=== PATIENT | male | born 1960 | race Caucasian/White ===

== ENCOUNTER 2017-04-28 09:32 | Day surgery (SDC) | payer OTHER ==
[2017-04-28] MEDS ORDERED: Lidocaine 1% PF 5 ML VIAL ONE (11:22)
[2017-04-28] MEDS ORDERED: Propofol 200 MG/20 ML VIAL ONE (11:22)
--- NOTE | 2017-04-28 12:00 | OP ---
DATE OF SERVICE: 04/28/2017 GI ENDOSCOPY NOTE SURGEON: Willem Zimmerman M.D. CALENDERING MACHINE OPERATOR SURGEON: None. PROCEDURE PERFORMED: Colonoscopy, screening. INDICATION: A 57-year-old gentleman with a family history of colon cancer in a first-degree relativ e (sister in her 50s), here for first screening colonoscopy. MEDICATIONS: See anesthesia record. FINDINGS: After discussion of the risks, benefits and alternatives of the procedure, informed conse nt was obtained and witnessed. Pre-endoscopic cardiopulmonary examination was satisfactory. Timeou t was performed before sedation was achieved. Sedation was achieved with anesthesia assistance in [facility] endoscopy unit. A digital rectal exam was performed which was unremarkable. A Pentax adult colo noscope was inserted into the anus and passed forward to the cecum in the usual fashion. The cecal base was identified by the appendiceal orifice as well as the ileocecal valve. The terminal ileum w as intubated and the ileal mucosa appeared normal. The colonoscope was then slowly withdrawn in a g radual and circumferential manner with careful examination of the entire colonic mucosa. The qualit y of the prep was good. In the sigmoid colon, there were a few small and medium sized diverticula. Otherwise, the colonoscopy is completely normal. There are no mucosal abnormalities. No polyps vi sualized. Retroflexion in the rectum was unremarkable. The colonoscope was completely withdrawn an d the patient allowed to recover. The patient tolerated the procedure well. There were no immediat e post-procedure complications. IMPRESSION: 1. Sigmoid diverticulosis. 2. Otherwise, normal colonoscopy to the terminal ileum. RECOMMENDATIONS: Repeat colonoscopy for screening in 5 years, due to his family history of colon ca ncer in a first-degree relative.
== END 2017-04-28 12:20 | disposition home or self-care (01) ==
LOC: SDC 09:32
PROVIDERS: ATTEND Internal Medicine
PROC: 0DJD8ZZ Inspection of Lower Intestinal Tract, Via Natural or Artificial Opening Endoscopic (ICD-10-PCS; principal; 2017-04-28)
DX: Z12.11 Encounter for screening for malignant neoplasm of colon (principal); K57.30 Diverticulosis of large intestine without perforation or abscess without bleeding; K21.9 Gastro-esophageal reflux disease without esophagitis; G47.30 Sleep apnea, unspecified; E66.01 Morbid (severe) obesity due to excess calories; Z68.43 Body mass index [BMI] 50.0-59.9, adult; Z88.5 Allergy status to narcotic agent; Z96.652 Presence of left artificial knee joint; Z80.0 Family history of malignant neoplasm of digestive organs
CPT/HCPCS: J2001; J2704

== ENCOUNTER 2020-04-19 10:51 | Inpatient (IN) | payer BC, OTHER ==
[~2020-04-19 10:51] MED LIST: Iopamidol-370 76% 500 ML 1 ML ONE
--- NOTE | 2020-04-19 11:18 | CT ---
CT HEAD WITHOUT IV CONTRAST COMPARISON: None. HISTORY: Level 2 stroke. Numbness to right side of body. TECHNIQUE: Axial CT imaging at 5 mm intervals from vertex through skull base without contrast FINDINGS: There is no evidence of an acute infarction, hemorrhage, mass effect, or midline shift. The ventricul ar system is normal in size, shape, and position. Skull base has a normal CT appearance. Visualized paranasal sinuses are clear. Osseous structures appear intact. IMPRESSION: 1. No acute intracranial abnormality demonstrated. 2. Above findings discussed Dr. Sung in the emergency department on 04/19/2020 at 1115 hours.
[2020-04-19 11:21] LABS: #Basophils 0.1 thou/uL (0.0-0.2); #Eosinphils 0.1 thou/uL (0.0-0.7); #Lymphocytes 2.6 thou/uL (1.20-3.40); #Monocytes 0.7 thou/uL (0.11-0.59); #Neutrophils 5.6 thou/uL (1.40-6.50); %Basophils 0.7 % (0.0-1.0); %Eosinophils 1.1 % (0.0-10.0); %Lymphocytes 28.5 % (21.0-51.0); %Monocytes 7.8 % (0.0-10.0); %Neutrophils 61.9 % (42.0-75.0); Hemoglobin 16.5 g/dL (14.0-18.0); Mean Corpuscular HGB CONC 33.9 g/dL (32.0-36.0); Mean Corpuscular Hemoglobin 31.3 pg (27.0-31.0); Mean Corpuscular Volume 92.4 fL (78.0-98.0); Mean Platelet Volume 8.8 fL (7.4-10.4); Platelet Count 191 thou/uL (130-400); RBC Distribution Width 12.2 % (11.5-14.5); Red Blood Cell (RBC) Count 5.28 mill/uL (4.70-6.10); White Blood Cell (WBC) Count 9.1 thou/uL (4.8-10.8)
[2020-04-19 11:32] LABS: INR-International Normal Ratio 0.9; PTT 34.7 sec (22.9-36.1); Prothrombin Time 12.8 sec (12.0-14.7)
[2020-04-19 11:41] LABS: Anion Gap 13 mmol/L (10-20); BUN (Urea Nitrogen) 18 mg/dL (8.4-25.7); Carbon Dioxide 25 mmol/L (22-29); Chloride 105 mmol/L (98-107); Sodium 139 mmol/L (136-145)
[2020-04-19 11:42] LABS: ALT (SGPT) 20 U/L (8-55); AST (SGOT) 16 U/L (5-34); Albumin 4.1 g/dL (3.5-5.0); Alkaline Phosphatase 92 U/L (40-110); Bilirubin, Total 0.5 mg/dL (0.2-1.2); CK (CPK) 66 U/L (30-200); Calc. Creatinine Clearance 0 mL/min (70-130); Estimated GFR-MDRD 70; Globulin 3.3 g/dL (2.4-3.5); Glucose 101 mg/dL (70-105); Protein, Total 7.4 g/dL (6.0-8.3)
--- NOTE | 2020-04-19 11:44 | CT ---
EXAM: CT angiogram head and neck with IV contrast and 3-D reconstructions PROVIDED CLINICAL HISTORY: Numbness to right side of body. Level 2 stroke. COMPARISON: Noncontrast CT head on 04/19/2020 FINDINGS: There is a normal arrangement of the great vessels at the aortic arch. There is limited evaluation of the vessels at the level of the chest and in the lower neck due to artifact primarily related to body habitus. However, the great vessels as well as bilateral subclavian arteries appear grossly laboy nt. The bilateral common carotid arteries are limited in their assessment but also appear patent. The bilateral internal and external carotid arteries are widely patent. The cervical vertebral arteries are limited again due to artifact but do appear patent. Distal verteb ral arteries and basilar artery are patent. Bilateral posterior cerebral arteries are patent. There are posterior communicating arteries visualiz ed bilaterally which are patent. The bilateral anterior and middle cerebral arteries are patent without branch occlusion or focal sten osis seen. No aneurysm is seen within the limitations of this exam. Minimal volume loss is present at each lung apex. Mild degenerative changes are seen in the cervical spine. No other findings. IMPRESSION: 1. Patent bilateral internal carotid arteries. 2. No focal stenosis or branch occlusion is seen involving the [place] or vertebrobasilar sy stem. 3. Above findings discussed with Dr. Sung in the emergency department on 04/19/2020 at 1141 hours.
[2020-04-19] MEDS ORDERED: Aspirin 325 MG TAB ONE (11:53)
[2020-04-19] MEDS ORDERED: Acetaminophen 325 MG TAB PO PRN (12:29)
[2020-04-19] MEDS ORDERED: Senokot S 8.6-50 MG TAB PO PRN (12:29)
--- NOTE | 2020-04-19 13:04 | PDOC.HHP ---
Hospitalist HPI - History of Present Illness Left-sided numbness History of Present Illness: This is a 60-year-old male patient with a history of obesity and CALLY who presented this morning on account of right-sided numbness from his face to his feet on awakening this morning. His last well time was 3 AM today when he woke up in the night. Symptoms were noted when he woke up at about 6:30 and persisted until he reported here at 11:40 AM. He denied any associated weakness, parenthesis, speech sluing, facial droop or gait problems. At presentation his vitals were BP 175/117, pulse 86, respiration 18, temperature 97.7 and saturating 99 on room air. His labs showed troponin of 0.01, BMP and CBC were essentially within normal limits. CT scan of his head showed no acute intracranial abnormalityno he morrhage was noted. Medications given were aspirin 3 to 4 mg and normal saline 500 mils. Hospitalist team was consulted for admission. Hospitalist ROS - Review of Systems Constitutional: denies: fever, chills, sweats Respiratory: denies: cough, dry, shortness of breath, hemoptysis Cardiovascular: denies: chest pain, palpitations, orthopnea Gastrointestinal: denies: nausea, vomiting, abdominal pain Musculoskeletal: denies: neck pain, shoulder pain, arm pain Neurological: denies: weakness, numbness, incoordination Hospitalist History - Past Medical History Other Medical History: CALLY, morbid obesity - Past Surgical History Other Surgical History: Left total knee replacement - Family History Family History: reports: cancer - Social History Smoking Status: Never smoker Alcohol: reports: None Living Situation: With Family - Exam General Appearance: awake alert General - other findings: Morbidly obese, no acute distress Eye: PERRL, anicteric sclera ENT: normocephalic atraumatic Neck: symmetric, no JVD, no thyromegaly Heart: RRR, no murmur, no gallops, no rubs Respiratory: no wheezes, no rales, no ronchi Gastrointestinal: soft, non-tender, non-distended, normal bowel sounds Extremities: no cyanosis, no clubbing, no edema Neurological: cranial nerve grossly intact, no weakness Psychiatric: normal affect, A&O x 3 Hospitalist Results - Labs Result Diagrams: 04/19/20 11:06 04/19/20 11:06 Lab results: WBC 9.1 thou/uL (4.8-10.8) 04/19/20 11:06 Hgb 16.5 g/dL (14.0-18.0) 04/19/20 11:06 Hct 48.8 % (42.0-52.0) 04/19/20 11:06 MCV 92.4 fL (78.0-98.0) 04/19/20 11:06 Plt Count 191 thou/uL (130-400) 04/19/20 11:06 Neutrophils % 61.9 % (42.0-75.0) 04/19/20 11:06 Sodium 139 mmol/L (136-145) 04/19/20 11:06 Potassium 4.0 mmol/L (3.5-5.1) 04/19/20 11:06 Chloride 105 mmol/L (98-107) 04/19/20 11:06 Carbon Dioxide 25 mmol/L (22-29) 04/19/20 11:06 BUN 18 mg/dL (8.4-25.7) 04/19/20 11:06 Creatinine 1.08 mg/dL (0.7-1.3) 04/19/20 11:06 Glucose 101 mg/dL (70-105) 04/19/20 11:06 Calcium 9.0 mg/dL (7.8-10.44) 04/19/20 11:06 Total Bilirubin 0.5 mg/dL (0.2-1.2) 04/19/20 11:06 AST 16 U/L (5-34) 04/19/20 11:06 ALT 20 U/L (8-55) 04/19/20 11:06 Alkaline Phosphatase 92 U/L (40-110) 04/19/20 11:06 Creatine Kinase 66 U/L (30-200) 04/19/20 11:06 Troponin I 0.012 ng/mL (< 0.028) 04/19/20 11:06 Serum Total Protein 7.4 g/dL (6.0-8.3) 04/19/20 11:06 Albumin 4.1 g/dL (3.5-5.0) 04/19/20 11:06 Hospitalist H&P A/P - Plan Plan: 60-year-old male patient with a history of CALLY, arthritis of left knee status post total knee replacement presents today with right-sided numbness. Stroke/TIA Initial head CT negative for bleed We will admit to stroke unit Telemetry monitoring Received aspirinwe will continue We will check TSH, A1c and lipid profile Echocardiogram CT angiogram Neuro consult. CALLY CPAP at night -Obesity Management on out patinet basis will check A1c and lipid profile VT prophylaxisSCD
[2020-04-19 14:01] LABS: Hemoglobin A1c 5.4 % (4.0-6.0)
[2020-04-19 15:18] VITALS: BMI 56.0
--- NOTE | 2020-04-19 19:22 | CON ---
NEUROLOGY CONSULTATION DATE OF CONSULTATION: 04/19/2020 REASON FOR CONSULTATION: Left-sided paresthesias, rule out stroke. HISTORY OF PRESENT ILLNESS: Mr. José Sharma is a 60-year-old male, with medical history significant for obesity and obstructive sleep apnea, presented with right-sided numbness around 6:30 a.m. Per patient, the symptoms persisted until 11:40 a.m. and he still has numbness in the left upper extremity, but left lower extremity numbness has been improved. The patient denies any focal weakness, nausea, vomiting, headache, chest pain, abdominal pain, recent exposure to COVID, or problems with speech or swallowing. He presented to the emergency room with blood pressure of 175/[address] scan was done, which was negative for acute intracranial pathology. He was given aspirin and normal saline and admitted for further evaluation. REVIEW OF SYSTEMS: All systems were reviewed and were negative, except the pertinent positives and negatives mentioned in the HPI. PAST MEDICAL HISTORY: Obstructive sleep apnea, morbid obesity. PAST SURGICAL HISTORY: Left total knee replacement. FAMILY HISTORY: Cancer. SOCIAL HISTORY: Patient denies smoking, alcohol, or illegal drug use. ALLERGIES: Hydrocodone PHYSICAL EXAMINATION: 132/79 88 20 General Appearance: awake alert General - other findings: Morbidly obese, no acute distress Eye: PERRL, anicteric sclera ENT: normocephalic atraumatic Neck: symmetric, no JVD, no thyromegaly Heart: RRR, no murmur, no gallops, no rubs Respiratory: no wheezes, no rales, no ronchi Gastrointestinal: soft, non-tender, non-distended, normal bowel sounds Extremities: no cyanosis, no clubbing, no edema Neurological: Mental status, patient is alert and oriented to person, place, and time. Recent and remote memory intact. Speech is clear. Cranial nerves 2 through 12 intact, except 5, decreased sensation to light touch in V1, V2, V3 distribution on the left side of the face. Sensory, decreased sensation to touch of the left upper extremity. Cerebellar, finger-nose testing intact. Motor, muscle tone, and bulk are normal. Strength 5/5 bilaterally. Gait deferred due to patient's safety reason. DATA REVIEWED: I reviewed the labs, CBC and CMP, which were essentially unremarkable. Head CT did not reveal any acute intracranial pathology. Lab results: WBC 9.1 thou/uL (4.8-10.8) 04/19/20 11:06 Hgb 16.5 g/dL (14.0-18.0) 04/19/20 11:06 Hct 48.8 % (42.0-52.0) 04/19/20 11:06 MCV 92.4 fL (78.0-98.0) 04/19/20 11:06 Plt Count 191 thou/uL (130-400) 04/19/20 11:06 Neutrophils % 61.9 % (42.0-75.0) 04/19/20 11:06 Sodium 139 mmol/L (136-145) 04/19/20 11:06 Potassium 4.0 mmol/L (3.5-5.1) 04/19/20 11:06 Chloride 105 mmol/L (98-107) 04/19/20 11:06 Carbon Dioxide 25 mmol/L (22-29) 04/19/20 11:06 BUN 18 mg/dL (8.4-25.7) 04/19/20 11:06 Creatinine 1.08 mg/dL (0.7-1.3) 04/19/20 11:06 Glucose 101 mg/dL (70-105) 04/19/20 11:06 Calcium 9.0 mg/dL (7.8-10.44) 04/19/20 11:06 Total Bilirubin 0.5 mg/dL (0.2-1.2) 04/19/20 11:06 AST 16 U/L (5-34) 04/19/20 11:06 ALT 20 U/L (8-55) 04/19/20 11:06 Alkaline Phosphatase 92 U/L (40-110) 04/19/20 11:06 Creatine Kinase 66 U/L (30-200) 04/19/20 11:06 Troponin I 0.012 ng/mL (< 0.028) 04/19/20 11:06 Serum Total Protein 7.4 g/dL (6.0-8.3) 04/19/20 11:06 Albumin 4.1 g/dL (3.5-5.0) 04/19/20 11:06 ASSESSMENT AND PLAN: Mr. José Sharma is a 60-year-old male, with history significant for obstructive sleep apnea, arthritis of the left knee, status post total knee replacement, presented with acute onset right-sided numbness, which has been improved since admission. Most likely, transient ischemic attack versus stroke. Initial head CT negative. The patient is unable to unable to undergo MRI brain testing because of his weight issue, consider repeating CT scan of the brain tomorrow. Neuro checks every 4 hours. Continue aspirin, high-intensity statin for secondary stroke prevention. 2D echo to evaluate for left ventricular ejection fraction. Consider CTA of the head and neck to rule out hemodynamically significant stenosis. Continue telemetry, neuro checks every 4 hours. Continue aspirin, high-intensity statin for secondary stroke prevention. Permissive control of blood pressure at this time. Strict control of blood glucose. Check hemoglobin A1c, fasting lipid panel, and TSH. Continue home medication. Continue medical management per primary team, PT/OT/Speech. DVT prophylaxis. We will continue to follow. Thank you for the consult. Job ID: [id number]
[2020-04-19] MEDS: Famotidine 20 MG TAB PO SCH (21:39)
[2020-04-20 04:46] LABS: #Eosinphils 0.1 thou/uL (0.0-0.7); #Lymphocytes 1.5 thou/uL (1.20-3.40); #Monocytes 0.5 thou/uL (0.11-0.59); #Neutrophils 2.8 thou/uL (1.40-6.50); %Basophils 0.6 % (0.0-1.0); %Eosinophils 1.7 % (0.0-10.0); %Lymphocytes 31.4 % (21.0-51.0); %Monocytes 9.3 % (0.0-10.0); %Neutrophils 56.9 % (42.0-75.0); Hemoglobin 14.4 g/dL (14.0-18.0); Mean Corpuscular HGB CONC 33.8 g/dL (32.0-36.0); Mean Corpuscular Volume 94.8 fL (78.0-98.0); Platelet Count 165 thou/uL (130-400); RBC Distribution Width 12.3 % (11.5-14.5); Red Blood Cell (RBC) Count 4.51 mill/uL (4.70-6.10); White Blood Cell (WBC) Count 4.9 thou/uL (4.8-10.8)
[2020-04-20 05:12] LABS: ALT (SGPT) 19 U/L (8-55); AST (SGOT) 13 U/L (5-34); Albumin 3.4 g/dL (3.5-5.0); Alkaline Phosphatase 72 U/L (40-110); Anion Gap 10 mmol/L (10-20); BUN (Urea Nitrogen) 14 mg/dL (8.4-25.7); Bilirubin, Total 0.6 mg/dL (0.2-1.2); Calc. Creatinine Clearance 192 mL/min (70-130); Calcium 8.6 mg/dL (7.8-10.44); Carbon Dioxide 27 mmol/L (22-29); Chloride 107 mmol/L (98-107); Cholesterol 170 mg/dl (< 200 Desired); Estimated GFR-MDRD 75; Globulin 2.6 g/dL (2.4-3.5); Glucose 113 mg/dL (70-105); HDL Cholesterol 34 mg/dL (>60 Neg Risk); LDL Cholesterol, Calculated 121 mg/dL; Potassium 3.8 mmol/L (3.5-5.1); Sodium 140 mmol/L (136-145); Triglycerides 77 mg/dL (Less than 150)
--- NOTE | 2020-04-20 09:26 | PDOC.HOSPP ---
- Subjective Encounter Date: 04/20/20 Encounter Time: 09:25 Subjective: No overnight events. Patient continues to report persistent numbness to R face and R arm. Reports resolved numbness to RLE. Denies changes in vision, dizziness, weakness. Denies chest pain, SOB, abdominal pain. Chart and medications reviewed. - Objective Vital Signs & Weight: Vital Signs (12 hours) Temp Pulse Resp BP Pulse Ox 04/20/20 08:00 134/86 04/20/20 07:56 97.7 F 81 16 98 04/20/20 03:10 97.9 F 66 20 110/62 94 L 04/19/20 23:11 97.8 F 66 20 106/77 99 Weight Weight 379 lb 11.2 oz I&O: 04/19/20 04/20/20 04/21/20 06:59 06:59 06:59 Intake Total 657 Balance 657 Result Diagrams: 04/20/20 04:25 04/20/20 04:25 Additional Labs: Accuchecks 04/19/20 11:03 POC Glucose 100 Hospitalist ROS - Review of Systems Constitutional: denies: fever, chills, sweats, weakness, malaise, other Eyes: denies: vision change ENT: denies: ear pain, mouth pain Respiratory: denies: cough, dry, shortness of breath, hemoptysis, SOB with exc ertion, pleuritic pain, sputum, wheezing, other Cardiovascular: denies: chest pain, palpitations, orthopnea, paroxysmal noc. dyspnea, edema, light headedness, other Gastrointestinal: denies: nausea, vomiting, abdominal pain, diarrhea, constipation, melena, hematochezia, other Genitourinary: denies: dysuria Musculoskeletal: denies: neck pain, shoulder pain Skin: denies: rash Neurological: reports: numbness. denies: weakness, change in speech, confusion - Medication Medications: Active Medications Generic Name Dose Route Start Last Admin Trade Name Freq PRN Reason Stop Dose Admin Famotidine 20 mg 04/19/20 21:00 04/19/20 21:39 Famotidine 20 Mg Tab PO 20 mg BID AIDEN Administration - Exam General Appearance: NAD, awake alert Eye: PERRL, anicteric sclera ENT: normocephalic atraumatic, no oropharyngeal lesions, moist mucosa Neck: supple, symmetric, no JVD, no thyromegaly, no lymphadenopathy, no carotid bruit Heart: RRR, no murmur, no gallops, no rubs, normal peripheral pulses Respiratory: CTAB, no wheezes, no rales, no ronchi, normal chest expansion, no tachypnea, normal percussion Gastrointestinal: soft, non-tender, non-distended, normal bowel sounds, no palpable masses, no hepatomegaly, no splenomegaly, no bruit Extremities: no cyanosis, no clubbing, no edema Skin: normal turgor, no lesions, no rashes Neurological: cranial nerve grossly intact, no weakness, no focal deficits, no new deficit Neurological - other findings: Decreased sensation to touch on RUE and R face, temporalis muscle intact Musculoskeletal: normal tone, normal strength, no muscle wasting Psychiatric: normal affect, normal behavior, A&O x 3 Hosp A/P - Plan 60M hx of CALLY, arthritis, obesity who presented with acute onset of right-sided weakness from his face, arm, and leg. Initial head CT no acute pathology. Patient now reports his RLE numbness has resolved, but still endorses RUE and R facial numbness. No weakness or pain. Neurology following who recommended repeat head CT since patient unable to undergo MRI 2/2 weight limit. Hg A1c 5.4, lipid panel wnl. TSH wnl. Continue ASA, statin Echo pending, cont telemetry monitoring Repeat head CT pending Neurology following Q4 neuro checks PT/OT eval DVT prophylaxis: lovenox FULL CODE Case discussed with Dr. Pineda
[2020-04-20 10:41] LABS: SARS-CoV-2 MS2 Positive; SARS-CoV-2 N Gene Negative; SARS-CoV-2 S Gene Negative; SARS-CoV-2 by NAA Not Detected (NotDetected); SARS-CoV-2 orf1ab Negative
--- NOTE | 2020-04-20 10:52 | CT ---
EXAM: CT angiogram head and neck with IV contrast and 3-D reconstructions PROVIDED CLINICAL HISTORY: Numbness to right side of body. Level 2 stroke. COMPARISON: Noncontrast CT head on 04/19/2020 FINDINGS: There is a normal arrangement of the great vessels at the aortic arch. There is limited evaluation of the vessels at the level of the chest and in the lower neck due to artifact primarily related to body habitus. However, the great vessels as well as bilateral subclavian arteries appear grossly laboy nt. The bilateral common carotid arteries are limited in their assessment but also appear patent. The bilateral internal and external carotid arteries are widely patent. The cervical vertebral arteries are limited again due to artifact but do appear patent. Distal verteb ral arteries and basilar artery are patent. Bilateral posterior cerebral arteries are patent. There are posterior communicating arteries visualiz ed bilaterally which are patent. The bilateral anterior and middle cerebral arteries are patent without branch occlusion or focal sten osis seen. No aneurysm is seen within the limitations of this exam. Minimal volume loss is present at each lung apex. Mild degenerative changes are seen in the cervical spine. No other findings. IMPRESSION: 1. Patent bilateral internal carotid arteries. 2. No focal stenosis or branch occlusion is seen involving the [place] or vertebrobasilar sy stem. 3. Above findings discussed with Dr. Sung in the emergency department on 04/19/2020 at 1141 hours. Transcribed Date/Time: 04/20/2020 10:52 AM
[2020-04-20] MEDS: Aspirin 325 mg Enteric Coated Tablet PO SCH (11:04)
[2020-04-20] MEDS: Famotidine 20 MG TAB PO SCH ×2 (11:05→21:32)
--- NOTE | 2020-04-20 12:04 | PDOC.NEUPN ---
- Subjective Encounter Date: 04/20/20 Subjective: Patient feels better today. Tingling and paresthesias in the right lower extremity resolved. He still has tingling and paresthesias on the left side of the face and left arm. Patient denies any weakness on any other new complaints. - Objective Vital Signs & Weight: Vital Signs (12 hours) Temp Pulse Pulse Pulse Resp BP BP 04/20/20 11:45 97.6 F 78 18 04/20/20 09:15 71 72 147/91 H 137/86 04/20/20 08:00 04/20/20 07:56 97.7 F 81 16 04/20/20 03:10 97.9 F 66 20 BP Pulse Ox 04/20/20 11:45 163/80 H 96 04/20/20 09:15 04/20/20 08:00 134/86 04/20/20 07:56 98 04/20/20 03:10 110/62 94 L Weight Weight 379 lb 11.2 oz I&O: 04/19/20 04/20/20 04/21/20 06:59 06:59 06:59 Intake Total 657 354 Balance 657 354 Result Diagrams: 04/20/20 04:25 04/20/20 04:25 Radiology Reviewed by me: Yes EKG Reviewed by me: Yes ROS - Review of Systems Constitutional: denies: fever, chills, sweats, weakness, malaise, other Eyes: denies: pain, vision change, conjunctivae inflammation, eyelid inflammation, redness, other ENT: denies: ear pain, ear discharge, nose pain, nose discharge, nose congestion, mouth pain, mouth swelling, throat pain, throat swelling, other Respiratory: denies: cough, dry, shortness of breath, hemoptysis, SOB with excertion, pleuritic pain, sputum, wheezing, other Musculoskeletal: reports: neck pain. denies: shoulder pain, arm pain, back pain, hand pain, leg pain, foot pain, other Neurological: reports: numbness. denies: weakness, incoordination, change in s peech, confusion, seizures, other All Systems: All other systems reviewed; all pertinent +/- noted in HPI/Subj - Medication Medications: Active Medications Generic Name Dose Route Start Last Admin Trade Name Freq PRN Reason Stop Dose Admin Aspirin 325 mg 04/20/20 09:00 04/20/20 11:04 Aspirin 325 Mg Enteric Coated Tablet PO 325 mg DAILY AIDEN Administration Famotidine 20 mg 04/19/20 21:00 04/20/20 11:05 Famotidine 20 Mg Tab PO Not Given BID AIDEN - Exam General Appearance: awake alert ENT: normocephalic atraumatic Neck: supple Respiratory: CTAB Cardiovascular: RRR Gastrointestinal: soft Extremities: no cyanosis Skin: normal turgor Neurological: CN's grossly intact, no weakness, no focal deficits, no new deficit Musculoskeletal: normal tone, normal strength, no muscle wasting PSYCH: normal behavior, A&O x 3, oriented to person, oriented to place, oriented to time Results - Labs Result Diagrams: 04/20/20 04:25 04/20/20 04:25 Lab results: WBC 4.9 thou/uL (4.8-10.8) 04/20/20 04:25 Hgb 14.4 g/dL (14.0-18.0) 04/20/20 04:25 Hct 42.7 % (42.0-52.0) 04/20/20 04:25 MCV 94.8 fL (78.0-98.0) 04/20/20 04:25 Plt Count 165 thou/uL (130-400) 04/20/20 04:25 Neutrophils % 56.9 % (42.0-75.0) 04/20/20 04:25 Sodium 140 mmol/L (136-145) 04/20/20 04:25 Potassium 3.8 mmol/L (3.5-5.1) 04/20/20 04:25 Chloride 107 mmol/L (98-107) 04/20/20 04:25 Carbon Dioxide 27 mmol/L (22-29) 04/20/20 04:25 BUN 14 mg/dL (8.4-25.7) 04/20/20 04:25 Creatinine 1.02 mg/dL (0.7-1.3) 04/20/20 04:25 Glucose 113 mg/dL (70-105) H 04/20/20 04:25 Calcium 8.6 mg/dL (7.8-10.44) 04/20/20 04:25 Total Bilirubin 0.6 mg/dL (0.2-1.2) 04/20/20 04:25 AST 13 U/L (5-34) 04/20/20 04:25 ALT 19 U/L (8-55) 04/20/20 04:25 Alkaline Phosphatase 72 U/L (40-110) 04/20/20 04:25 Creatine Kinase 66 U/L (30-200) 04/19/20 11:06 Troponin I 0.012 ng/mL (< 0.028) 04/19/20 11:06 Serum Total Protein 6.0 g/dL (6.0-8.3) 04/20/20 04:25 Albumin 3.4 g/dL (3.5-5.0) L 04/20/20 04:25 - Radiology Interpretation CT scan - head Status: image reviewed by me, report reviewed by me Additional Comment: Head CT reviewed which was negative for acute intracranial pathology. PN A/P - Plan Daily Plan: plan discussed w/ family, PT/OT, speech therapy, out of bed/ambulate 60-year-old male with history significant for hypertension presented with acute onset paresthesias of the right upper and lower extremity including the right side of the face. Right lower extremity paresthesias resolved but he still have mild persistent paresthesia in the right upper extremity and the right side of the face. The patient denies any focal weakness. Head CT reviewed which was negative for acute intracranial pathology. CTA of the head and neck was negative for hemodynamically significant stenosis. 2D echo completed. Left ventricular ejection fraction is 50 to 55%. No thrombus or PFO. MRI of the brain to rule out acute intracranial process cannot be completed at our hospital because of the weight limit. The patient will be transferred to [facility] for evaluation with open MRI brain today. Neurochecks every 4 hours. Continue aspirin and high intensity statin for secondary stroke prevention. Continue home medications. Permissive control of blood pressure at this time. Strict control of blood glucose. PT/OT/speech. Continue medical management per primary team. Plan discussed in detail with the patient, and primary provider and the nursing staff.
[2020-04-20] MEDS ORDERED: Lorazepam 1 MG TAB PO SCH (16:45)
[2020-04-20] MEDS ORDERED: Atorvastatin Calcium 40 MG TAB PO SCH (21:00)
[2020-04-20] MEDS ORDERED: Enoxaparin Sodium 40 MG/0.4 ML SYRINGE SC SCH (21:00)
[2020-04-21 05:17] LABS: #Basophils 0.1 thou/uL (0.0-0.2); #Eosinphils 0.1 thou/uL (0.0-0.7); #Lymphocytes 2.7 thou/uL (1.20-3.40); #Monocytes 0.6 thou/uL (0.11-0.59); #Neutrophils 3.8 thou/uL (1.40-6.50); %Basophils 1.1 % (0.0-1.0); %Eosinophils 1.7 % (0.0-10.0); %Lymphocytes 36.9 % (21.0-51.0); %Monocytes 8.6 % (0.0-10.0); %Neutrophils 51.8 % (42.0-75.0); Hemoglobin 14.4 g/dL (14.0-18.0); Mean Corpuscular HGB CONC 33.1 g/dL (32.0-36.0); Mean Corpuscular Volume 93.6 fL (78.0-98.0); Mean Platelet Volume 8.2 fL (7.4-10.4); Platelet Count 188 thou/uL (130-400); RBC Distribution Width 12.3 % (11.5-14.5); Red Blood Cell (RBC) Count 4.64 mill/uL (4.70-6.10); White Blood Cell (WBC) Count 7.3 thou/uL (4.8-10.8)
[2020-04-21 05:33] LABS: Anion Gap 11 mmol/L (10-20); BUN (Urea Nitrogen) 14 mg/dL (8.4-25.7); Calc. Creatinine Clearance 189 mL/min (70-130); Calcium 8.6 mg/dL (7.8-10.44); Carbon Dioxide 24 mmol/L (22-29); Chloride 108 mmol/L (98-107); Estimated GFR-MDRD 73; Glucose 115 mg/dL (70-105); Potassium 4.4 mmol/L (3.5-5.1); Sodium 139 mmol/L (136-145)
[2020-04-21 07:48] VITALS: BP 139/78; TEMP 97.4
[2020-04-21] MEDS: Famotidine 20 MG TAB PO SCH (09:58)
[2020-04-21] MEDS: Aspirin 325 mg Enteric Coated Tablet PO SCH (09:58)
--- NOTE | 2020-04-21 13:11 | PDOC.NEUPN ---
- Subjective Encounter Date: 04/21/20 Subjective: Patient is awake alert and feels much better this morning. MRI of the brain was done at [facility] which did reveal tiny acute lacunar infarction. No new complaints in the last 24 hours. Patient still complains of mild paresthesias in the left side of the face and left upper extremity. - Objective Vital Signs & Weight: Vital Signs (12 hours) Temp Pulse Resp BP Pulse Ox 04/21/20 07:47 97.4 F L 67 16 139/78 95 04/21/20 04:00 97.7 F 68 16 118/66 96 Weight Weight 379 lb 11.2 oz I&O: 04/20/20 04/21/20 04/22/20 06:59 06:59 06:59 Intake Total 657 1184 Balance 657 1184 Result Diagrams: 04/21/20 05:03 04/21/20 05:03 Radiology Reviewed by me: Yes EKG Reviewed by me: Yes ROS - Review of Systems Constitutional: denies: fever, chills, sweats, weakness, malaise, other ENT: denies: ear pain, ear discharge, nose pain, nose discharge, nose congestion, mouth pain, mouth swelling, throat pain, throat swelling, other Respiratory: denies: cough, dry, shortness of breath, hemoptysis, SOB with excertion, pleuritic pain, sputum, wheezing, other Gastrointestinal: denies: nausea, vomiting, abdominal pain, diarrhea, constipation, melena, hematochezia, other Musculoskeletal: denies: neck pain, shoulder pain, arm pain, back pain, hand pain, leg pain, foot pain, other Skin: denies: rash, lesions, daniela, bruising, other Neurological: reports: numbness All Systems: All other systems reviewed; all pertinent +/- noted in HPI/Subj - Exam General Appearance: awake alert Eye: PERRL ENT: normocephalic atraumatic Neck: supple Respiratory: CTAB Cardiovascular: RRR Gastrointestinal: soft Extremities: no cyanosis Skin: normal turgor Neurological: no new deficit Musculoskeletal: normal tone, normal strength, no muscle wasting PSYCH: normal affect, normal behavior, A&O x 3, oriented to person, oriented to place, oriented to time Results - Labs Result Diagrams: 04/21/20 05:03 04/21/20 05:03 Lab results: WBC 7.3 thou/uL (4.8-10.8) 04/21/20 05:03 Hgb 14.4 g/dL (14.0-18.0) 04/21/20 05:03 Hct 43.5 % (42.0-52.0) 04/21/20 05:03 MCV 93.6 fL (78.0-98.0) 04/21/20 05:03 Plt Count 188 thou/uL (130-400) 04/21/20 05:03 Neutrophils % 51.8 % (42.0-75.0) 04/21/20 05:03 Sodium 139 mmol/L (136-145) 04/21/20 05:03 Potassium 4.4 mmol/L (3.5-5.1) 04/21/20 05:03 Chloride 108 mmol/L (98-107) H 04/21/20 05:03 Carbon Dioxide 24 mmol/L (22-29) 04/21/20 05:03 BUN 14 mg/dL (8.4-25.7) 04/21/20 05:03 Creatinine 1.04 mg/dL (0.7-1.3) 04/21/20 05:03 Glucose 115 mg/dL (70-105) H 04/21/20 05:03 Calcium 8.6 mg/dL (7.8-10.44) 04/21/20 05:03 Total Bilirubin 0.6 mg/dL (0.2-1.2) 04/20/20 04:25 AST 13 U/L (5-34) 04/20/20 04:25 ALT 19 U/L (8-55) 04/20/20 04:25 Alkaline Phosphatase 72 U/L (40-110) 04/20/20 04:25 Creatine Kinase 66 U/L (30-200) 04/19/20 11:06 Troponin I 0.012 ng/mL (< 0.028) 04/19/20 11:06 Serum Total Protein 6.0 g/dL (6.0-8.3) 04/20/20 04:25 Albumin 3.4 g/dL (3.5-5.0) L 04/20/20 04:25 - EKG Interpretation EKG: Normal sinus rhythm - Radiology Interpretation MRI - head Status: report reviewed by me Additional Comment: MRI brain consistent with acute tiny lacunar infarction PN A/P - Plan Daily Plan: plan discussed w/ family, PT/OT, speech therapy, out of bed/ambulate 60-year-old male with history significant for hypertension presented with acute onset paresthesias of the right upper and lower extremity including the right side of the face. Right lower extremity paresthesias resolved but he still have mild persistent paresthesia in the right upper extremity and the right side of the face. The patient denies any focal weakness. MRI of the brain completed yesterday at [facility] showed subacute tiny lacunar infarction in the left thalamus. MRI of the brain reviewed which was consistent with acute infarction in the left thalamus. Head CT reviewed which was negative for acute intracranial pathology. CTA of the head and neck was negative for hemodynamically significant stenosis. 2D echo completed. Left ventricular ejection fraction is 50 to 55%. No thrombus or PFO. Neurochecks every 4 hours. Continue aspirin and high intensity statin for secondary stroke prevention. Continue home medications. Permissive control of blood pressure at this time. Strict control of blood glucose. PT/OT/speech. Continue medical management per primary team. Stable from discharge from neurology perspective Plan discussed in detail with the patient, and primary provider Dr. Arreguin and the nursing staff.
--- NOTE | 2020-04-21 18:51 | PDOC.DS.DS ---
Provider - Provider Date of Admission: 04/19/20 12:09 Date of Discharge: 04/21/20 Admitting Provider: Naresh Pineda MD Consultations:: Neurology Primary Care Physician: WILLEM VELA JR, MD Course - Hospital Course Hospital Course: Patient is a 60-year-old male with morbid obesity with a BMI of 56.1 and obstructive sleep apnea presented to the emergency room with left-sided paresthesias. He was admitted in the stroke unit with a diagnosis of suspected CVA. CT scan of the brain was negative for acute CVA. He was started on aspirin along with statins. Echocardiogram showed ejection fraction of 50 to 55% with mild aortic regurgitation without any intracardiac thrombus. CT angiogram of the head and neck was negative for hemodynamically significant stenosis. He underwent open MRI at outside facility that showed left thalamus lacunar CVA. He was evaluated by neurology service and stroke team. His symptoms are gradually improving. Lifestyle modification was emphasized. He will continue aspirin with statins. Final diagnosis: Acute left thalamus lacunar CVA Morbid obesity with a BMI 56.1 Obstructive sleep apnea on CPAP Degenerative joint disease CKD stage II Mild aortic regurgitation - Labs Lab Results: 04/21/20 05:03 04/21/20 05:03 Abnormal Lab Results - Last 48 hrs 04/20/20 04:25: Albumin 3.4 L 04/20/20 04:25: RBC 4.51 L, MCH 32.0 H 04/21/20 05:03: Chloride 108 H 04/21/20 05:03: RBC 4.64 L, Basophils % 1.1 H, Monocytes # 0.6 H Laboratory Tests 04/19/20 11:06 Hemoglobin A1c 5.4 - Physical Exam Vitals: Vital Signs (12 hours) Temp Pulse Resp BP Pulse Ox 04/21/20 07:47 97.4 F L 67 16 139/78 95 Weight Weight 379 lb 11.2 oz Physical Exam: The patient was seen and examined on the day of discharge. Plan - Discharge Medications Prescriptions: Aspirin [Aspirin EC] 81 mg PO DAILY #30 tablet. Atorvastatin Calcium [Lipitor] 40 mg PO HS #30 tab Home Medications: Medication Instructions Recorded Confirmed Type Omeprazole 40 mg PO DAILY 04/19/20 04/19/20 History Aspirin [Aspirin EC] 81 mg PO DAILY #30 tablet. 04/21/20 Rx Atorvastatin Calcium [Lipitor] 40 mg PO HS #30 tab 04/21/20 Rx Allergies: hydrocodone Allergy (Verified 04/19/20 14:50) Nausea - Follow up Plan Referrals: Willem Vela Jr, MD [Primary Care Provider] - 7 Days Hal Romero MD [Active] - 7 Days Disposition: HOME
== END 2020-04-21 11:58 | disposition home or self-care (01) | DRG 65 ==
LOC: ERS 10:51 → 2SE 12:09
PROVIDERS: ADMIT Student in an Organized Health Care Education/Training Program; ATTEND Student in an Organized Health Care Education/Training Program
DX: I63.81 Other cerebral infarction due to occlusion or stenosis of small artery (principal); Z68.43 Body mass index [BMI] 50.0-59.9, adult; G81.91 Hemiplegia, unspecified affecting right dominant side; I35.1 Nonrheumatic aortic (valve) insufficiency; Z20.828 Contact with and (suspected) exposure to other viral communicable diseases; E66.01 Morbid (severe) obesity due to excess calories; G47.33 Obstructive sleep apnea (adult) (pediatric); M19.90 Unspecified osteoarthritis, unspecified site; N18.2 Chronic kidney disease, stage 2 (mild); I12.9 Hypertensive chronic kidney disease with stage 1 through stage 4 chronic kidney disease, or unspecified chronic kidney disease; K21.9 Gastro-esophageal reflux disease without esophagitis; R29.702 NIHSS score 2; Z96.652 Presence of left artificial knee joint; Z79.899 Other long term (current) drug therapy
CPT/HCPCS: 36415; 36416; 70450; 70496; 70498; 80048; 80053; 80061; 82550; 83036; 84443; 84484; 85025; 85610; 85730; 87635; 93005; 93306; 94760; J1650; Q9967; U0003

== ENCOUNTER 2024-04-21 10:35 | Emergency (ER) | payer BC, OTHER ==
[2024-04-21] MEDS ORDERED: Ondansetron PF 4 MG/2 ML Vial ONE ×2 (10:56→11:07)
[2024-04-21] MEDS ORDERED: Ketorolac Tromethamine 30 MG (1 mL) VIAL ONE (11:06)
[2024-04-21] MEDS ORDERED: Morphine 4 MG/ML VIAL ONE (11:16)
[2024-04-21 11:27] LABS: #Basophils 0.04 10x3/uL (0.0-0.2); %Basophils 0.4 % (0.0-1.0); %Eosinophils 0.4 % (0.0-10.0); %Lymphocytes 19.1 % (21.0-51.0); %Monocytes 6.2 % (0.0-10.0); %Neutrophils 73.4 % (42.0-75.0); Hematocrit 45.7 % (42.0-52.0); Hemoglobin 15.8 g/dL (14.0-18.0); Mean Corpuscular HGB CONC 34.6 g/dL (32.0-36.0); Mean Corpuscular Hemoglobin 31.3 pg (27.0-31.0); Mean Corpuscular Volume 90.7 fL (78.0-98.0); Mean Platelet Volume 10.4 fL (7.4-10.4); Platelet Count 192 10x3/uL (130-400); Red Blood Cell (RBC) Count 5.04 mill/uL (4.70-6.10)
[2024-04-21 11:42] LABS: ALT (SGPT) 14 U/L (8-55); AST (SGOT) 13 U/L (5-34); Albumin 3.6 g/dL (3.4-4.8); Alkaline Phosphatase 101 U/L (40-110); Anion Gap 12 mmol/L (10-20); BUN (Urea Nitrogen) 26 mg/dL (8.4-25.7); Bilirubin, Total 0.7 mg/dL (0.2-1.2); Calc. Creatinine Clearance 0 mL/min (70-130); Calcium 9.3 mg/dL (7.8-10.44); Carbon Dioxide 24 mmol/L (23-31); Chloride 105 mmol/L (98-107); Estimated GFR 60; Globulin 3.4 g/dL (2.4-3.5); Glucose 124 mg/dL (80-115); Sodium 137 mmol/L (136-145)
[2024-04-21 11:43] LABS: Bacteria/HPF Rare-Few HPF (None Seen); Bilirubin Negative (Negative); Blood, Urine 3+ (Negative); CAUTI Indications for Culture Acute Hematuria; Clarity Clear (Clear); Glucose, Urine (Dipstick) Normal (Negative); Ketone, Urine Negative (Negative); Leukocyte 75 Leu/uL (Negative); Nitrite Negative (Negative); Protein, Urine (Dipstick) Negative (Neg-Trace); RBC/HPF 21-50 HPF (0-3); Specific Gravity, Urine 1.014 (1.002-1.036); Squamous Epithelial 0-3 HPF (0-3); Urobilinogen Normal mg/dL (Less than 2); pH, Urine 6.5 (5.0-9.0)
[2024-04-21 11:44] LABS: Urine Culture Reflex No No
== END 2024-04-21 12:31 | disposition home or self-care (01) ==
LOC: ERS 10:35
DX: N13.2 Hydronephrosis with renal and ureteral calculous obstruction (principal); K21.9 Gastro-esophageal reflux disease without esophagitis; Z79.899 Other long term (current) drug therapy
CPT/HCPCS: 74176; 80053; 81001; 85025; 96361; 96374; 96375; J1885; J2272; J2405